=== PATIENT | male | born 1945 | race Caucasian/White ===

== ENCOUNTER 2020-08-17 09:45 | Inpatient (IN) | payer OTHER ==
[~2020-08-17] VITALS: Ht 180.3 cm; Wt 98.3 kg
[~2020-08-17 09:45] MED LIST: ALPR0.5T; AMLO-496; FLUT250M9; GABA100C; NOR10T; SIMV10TA2; ZOLP10TA
[2020-08-17] MEDS ORDERED: AMIODARONE HCL 150 MG in D5W 5% 100 ML IV ONE (10:00)
[2020-08-17] MEDS ORDERED: AMIODARONE HCL (50 MG/ ML) 3 ML VIAL IV ONE (10:14)
[2020-08-17] MEDS ORDERED: AMIODARONE 450mg/250ml AE 250 ML IV SCH (10:15)
[2020-08-17] MEDS ORDERED: DEXTROSE (50%) 50ML SYRG IV PRN (10:15)
[2020-08-17] MEDS ORDERED: INSULIN LANTUS (GLARGINE) 1 /0.01ml (100units/ml) SC ONE (10:15)
[2020-08-17 10:25] LABS: Basophils # (auto) 0 10 ^3/uL (0-0.2); Basophils % (auto) 0.1 % (0.0-2.0); Eosinophils # (auto) 0 10 ^3/uL (0-0.8); Neutrophils % (auto) 83.7 % (37.0-80.0)
[2020-08-17 10:26] LABS: Lymphocytes # (auto) 0.9 10 ^3/uL (0.4-5.4); Lymphocytes % (auto) 8.2 % (10.0-50.0); Mean Corpuscular Hemoglobin 29.7 pg (28.0-32.0); Mean Corpuscular Hgb Conc. 32.7 g/dL (32.0-36.0); Mean Corpuscular Volume 90.9 fL (80.0-100.0); Monocytes # (auto) 0.8 10 ^3/uL (0-1.3); Neutrophils # (auto) 8.8 10 ^3/uL (1.6-8.6); Nucleated Red Blood Cells % 0.7 %; Red Blood Cells 7.21 10^6/uL (4.5-5.90); Red Cell Distribution Width 15.1 % (11.8-14.3); White Blood Cell 10.5 10^3/uL (4.4-10.8)
[2020-08-17 10:32] LABS: Hematocrit 65.5 % (41.0-53.0)
[2020-08-17 10:33] LABS: Hemoglobin 21.4 g/dL (13.5-17.5)
[2020-08-17] MEDS: SODIUM CHLORIDE 0.9% 1,000 ML IV SCH ×4 (10:34→22:56)
[2020-08-17] MEDS ORDERED: ONDANSETRON HCL 4 MG/2 ML VIAL IV ONE (10:45)
[2020-08-17] MEDS ORDERED: ONDANSETRON HCL 4 MG/2 ML VIAL ONE (10:45)
[2020-08-17] MEDS ORDERED: SODIUM CHLORIDE 0.9% 1,000 ML IV ONE (10:45)
[2020-08-17 10:55] LABS: Urine Bacteria NONE SEEN /hpf (None Seen); Urine Blood 1+ /uL (Negative); Urine Hyaline Cast FEW /lpf (0 - 2); Urine Specific Gravity 1.027 (1.001-1.035); Urine WBC <1 /hpf (0 - 3)
[2020-08-17 10:56] LABS: Calcium 8.7 mg/dL (8.5-10.1); Potassium 5.1 mmol/L (3.5-5.1)
[2020-08-17 10:59] LABS: Platelet Count (auto) 138 10^3/uL (140-450)
[2020-08-17 11:01] LABS: BUN/Creatinine Ratio 21.4; Bilirubin, Total 0.7 mg/dL (0.2-1.0); Total Protein 7.1 g/dL (6.4-8.2)
[2020-08-17] MEDS: ACCU-CHEK COMFORT CURVE STRIP VI SCH ×9 (11:18→22:55)
[2020-08-17 11:20] LABS: Phosphorus 4.9 mg/dL (2.5-4.90)
[2020-08-17] MEDS: InsuLIN R (HUMAN) 100 UNITS in SODIUM CHL 0.9% 99 ML IV SCH (11:27)
[2020-08-17 11:45] LABS: CRP High Sensitivity 2.04 mg/dL (< 0.3)
[2020-08-17] MEDS ORDERED: ACETAMINOPHEN 500 MG TAB PO PRN (13:30)
[2020-08-17] MEDS ORDERED: NITROGLYCERIN 0.4 MG SL TAB SL PRN (13:30)
[2020-08-17] MEDS ORDERED: METOPROLOL TARTRATE 1MG/1ML-5ML VIAL IV ONE (13:30)
[2020-08-17] MEDS ORDERED: HYDROcodone-ACET 5/325MG TAB PO PRN (13:30)
[2020-08-17] MEDS ORDERED: MORPHINE SULF INJ 2 MG/ML SYRINGE 1ML IV PRN (13:30)
[2020-08-17 13:44] LABS: Basophils # (auto) 0 10 ^3/uL (0-0.2); Basophils % (auto) 0.1 % (0.0-2.0); Eosinophils # (auto) 0 10 ^3/uL (0-0.8); Mean Corpuscular Volume 90.1 fL (80.0-100.0); Monocytes # (auto) 0.3 10 ^3/uL (0-1.3); White Blood Cell 11.7 10^3/uL (4.4-10.8)
[2020-08-17 13:45] LABS: Hemoglobin 19.8 g/dL (13.5-17.5); Lymphocytes # (auto) 0.4 10 ^3/uL (0.4-5.4); Lymphocytes % (auto) 3.3 % (10.0-50.0); Mean Corpuscular Hemoglobin 30.4 pg (28.0-32.0); Mean Corpuscular Hgb Conc. 33.7 g/dL (32.0-36.0); Monocytes % (auto) 2.5 % (0.0-12.0); Neutrophils % (auto) 94.1 % (37.0-80.0); Nucleated Red Blood Cells % 0.5 %; Red Blood Cells 6.53 10^6/uL (4.5-5.90); Red Cell Distribution Width 15.1 % (11.8-14.3)
[2020-08-17] MEDS: cefTRIAXone 1GM/50ML D5W 50 ML IV SCH (14:00)
[2020-08-17 14:02] LABS: Hematocrit 58.9 % (41.0-53.0); Platelet Count (auto) 89 10^3/uL (140-450)
[2020-08-17] MEDS: ZINC SULFATE 220mg CAP or TAB PO SCH (14:12)
[2020-08-17] MEDS: ASCORBIC ACID 1,000 MG TAB PO SCH (14:12)
[2020-08-17] MEDS: CHOLECALCIFEROL (VITD3) 2,000 UNIT CAP/TAB PO SCH (14:12)
[2020-08-17 14:14] LABS: Albumin 2.7 g/dL (3.4-5.0); Calcium 7.8 mg/dL (8.5-10.1); Magnesium 2.2 mg/dL (1.6-2.6); Potassium 4.7 mmol/L (3.5-5.1)
[2020-08-17] MEDS ORDERED: SODIUM CHLORIDE 0.9% 1,000 ML IV SCH ×2 (14:15→16:15)
[2020-08-17 14:19] LABS: BUN/Creatinine Ratio 26.1; Bilirubin, Total 0.6 mg/dL (0.2-1.0); Total Protein 6.1 g/dL (6.4-8.2)
[2020-08-17] MEDS: AZITHROMYCIN 500MG/ 250ML 250 ML IV SCH (15:54)
[2020-08-17] MEDS: ENOXAPARIN SOD 40 MG/0.4 ML SYRINGE SC SCH ×2 (15:54→22:33)
[2020-08-17] MEDS: MORPHINE SULF INJ 2 MG/ML SYRINGE 1ML IV PRN (15:55)
[2020-08-17] MEDS: ONDANSETRON HCL 4 MG/2 ML VIAL IV PRN (15:55)
[2020-08-17] MEDS ORDERED: IVERMECTIN 3 MG TAB PO ONE (16:00)
[2020-08-17] MEDS: AMIODARONE 450mg/250ml AE 250 ML IV SCH (16:53)
[2020-08-17] MEDS: METOPROLOL TARTRATE 50 MG TAB PO SCH (18:23)
[2020-08-17] MEDS: BUDESONIDE (INHALATION) 180 MCG IH IN SCH (18:37)
[2020-08-17 20:14] LABS: INR 1.11 (0.9-1.15); Partial Thromboplastin Time 29.3 sec (23.0-31.2)
[2020-08-17] MEDS: ALBUTEROL SULF HFA 90MCG INH 200DOSE IN PRN (20:19)
[2020-08-18 00:25] LABS: BUN/Creatinine Ratio 31.4; Calcium 7.7 mg/dL (8.5-10.1); Potassium 4.6 mmol/L (3.5-5.1)
[2020-08-18] MEDS: ACCU-CHEK COMFORT CURVE STRIP VI SCH ×11 (01:46→22:54)
[2020-08-18 01:51] LABS: Lactic Acid w/Reflex 2.4 mmol/L (0.4-2.0)
[2020-08-18] MEDS ORDERED: AMIODARONE HCL 75 MG in D5W 5% 100 ML IV ONE (05:00)
[2020-08-18] MEDS ORDERED: dilTIAZem 25 MG/5 ML VIAL IV ONE (05:45)
[2020-08-18 06:12] LABS: Basophils # (auto) 0 10 ^3/uL (0-0.2); Basophils % (auto) 0.3 % (0.0-2.0); Eosinophils # (auto) 0 10 ^3/uL (0-0.8); Hemoglobin 19.8 g/dL (13.5-17.5); Lymphocytes # (auto) 0.5 10 ^3/uL (0.4-5.4); Lymphocytes % (auto) 3.8 % (10.0-50.0); Mean Corpuscular Hemoglobin 30.3 pg (28.0-32.0); Mean Corpuscular Hgb Conc. 34.7 g/dL (32.0-36.0); Mean Corpuscular Volume 87.4 fL (80.0-100.0); Monocytes # (auto) 0.8 10 ^3/uL (0-1.3); Monocytes % (auto) 6.2 % (0.0-12.0); Neutrophils % (auto) 89.7 % (37.0-80.0); Nucleated Red Blood Cells % 0.1 %; Platelet Count (auto) 113 10^3/uL (140-450); Red Blood Cells 6.55 10^6/uL (4.5-5.90); Red Cell Distribution Width 14.9 % (11.8-14.3); White Blood Cell 13.3 10^3/uL (4.4-10.8)
[2020-08-18 06:15] LABS: Hematocrit 57.3 % (41.0-53.0)
[2020-08-18 06:30] LABS: Potassium 4.5 mmol/L (3.5-5.1)
[2020-08-18 06:40] LABS: Albumin 2.5 g/dL (3.4-5.0); BUN/Creatinine Ratio 28.6; Bilirubin, Total 0.6 mg/dL (0.2-1.0); Calcium 8.1 mg/dL (8.5-10.1); Total Protein 5.9 g/dL (6.4-8.2)
[2020-08-18] MEDS: AMIODARONE 450mg/250ml AE 250 ML IV SCH (07:15)
[2020-08-18] MEDS: ASCORBIC ACID 1,000 MG TAB PO SCH (09:15)
[2020-08-18] MEDS: ZINC SULFATE 220mg CAP or TAB PO SCH (09:15)
[2020-08-18] MEDS: METOPROLOL TARTRATE 50 MG TAB PO SCH ×2 (09:15→22:52)
[2020-08-18] MEDS: CHOLECALCIFEROL (VITD3) 2,000 UNIT CAP/TAB PO SCH (09:15)
[2020-08-18] MEDS: ENOXAPARIN SOD 40 MG/0.4 ML SYRINGE SC SCH (09:16)
[2020-08-18] MEDS: INSULIN LANTUS (GLARGINE) 1 /0.01ml (100units/ml) SC SCH (09:16)
[2020-08-18] MEDS: SODIUM CHLORIDE 0.9% 1,000 ML IV SCH ×2 (09:59→16:48)
[2020-08-18] MEDS: AZITHROMYCIN 500MG/ 250ML 250 ML IV SCH (10:00)
[2020-08-18] MEDS: BUDESONIDE (INHALATION) 180 MCG IH IN SCH ×2 (10:12→18:48)
[2020-08-18] MEDS: ALBUTEROL SULF HFA 90MCG INH 200DOSE IN PRN ×2 (10:12→19:17)
[2020-08-18] MEDS: InsuLIN R (HUMAN) 100 UNITS in SODIUM CHL 0.9% 99 ML IV SCH (10:15)
[2020-08-18] MEDS: cefTRIAXone 1GM/50ML D5W 50 ML IV SCH (11:10)
[2020-08-18] MEDS ORDERED: DEXTROSE (50%) 50ML SYRG IV PRN (12:00)
[2020-08-18] MEDS ORDERED: DIGOXIN (250MCG/ML) 2 ML AMPULE IV ONE ×2 (13:45→17:00)
[2020-08-18] MEDS: AMIODARONE HCL 200 MG TAB PO SCH ×2 (14:00→22:53)
[2020-08-18] MEDS ORDERED: SIMV-8 PO (14:03)
[2020-08-18] MEDS ORDERED: ALLO300T2 PO (14:05)
[2020-08-18] MEDS ORDERED: GLIP5TAB12 PO (14:05)
[2020-08-18] MEDS ORDERED: BENA20TA14 PO (14:05)
[2020-08-18] MEDS ORDERED: CARV6.2551 PO (14:05)
[2020-08-18] MEDS ORDERED: TIZA4CAP PO (14:05)
[2020-08-18] MEDS ORDERED: INSREG3 SC (14:06)
[2020-08-18] MEDS ORDERED: REMDESIVIR PER PHARMACY 0 ML IV SCH (14:15)
[2020-08-18] MEDS: InsuLIN REG 1unit/0.01ml Soln (100units/ml) SC SCH ×2 (16:49→22:51)
[2020-08-18] MEDS ORDERED: REMDESIVIR 200 MG in NS 210ml LOADING DOSE ADULT IV ONE (17:00)
[2020-08-18] MEDS: hydrALAZINE HCL 20 MG/ML VL IV PRN (21:13)
[2020-08-18] MEDS: APIXABAN 5 MG TAB PO SCH (22:53)
[2020-08-18] MEDS: MORPHINE SULF INJ 2 MG/ML SYRINGE 1ML IV PRN (22:54)
[2020-08-19] MEDS: hydrALAZINE HCL 20 MG/ML VL IV PRN (00:45)
[2020-08-19] MEDS: MORPHINE SULF INJ 2 MG/ML SYRINGE 1ML IV PRN ×5 (03:28→23:05)
[2020-08-19] MEDS: SODIUM CHLORIDE 0.9% 1,000 ML IV SCH ×2 (05:01→15:40)
[2020-08-19 06:12] LABS: Basophils # (auto) 0 10 ^3/uL (0-0.2); Basophils % (auto) 0.1 % (0.0-2.0); Eosinophils # (auto) 0 10 ^3/uL (0-0.8); Monocytes # (auto) 0.5 10 ^3/uL (0-1.3); Monocytes % (auto) 5.9 % (0.0-12.0)
[2020-08-19 06:14] LABS: Hematocrit 51.6 % (41.0-53.0); Hemoglobin 17.8 g/dL (13.5-17.5); Lymphocytes # (auto) 0.5 10 ^3/uL (0.4-5.4); Lymphocytes % (auto) 6.3 % (10.0-50.0); Mean Corpuscular Hemoglobin 30.6 pg (28.0-32.0); Mean Corpuscular Hgb Conc. 34.6 g/dL (32.0-36.0); Mean Corpuscular Volume 88.5 fL (80.0-100.0); Neutrophils # (auto) 7.6 10 ^3/uL (1.6-8.6); Neutrophils % (auto) 87.7 % (37.0-80.0); Nucleated Red Blood Cells % 0.2 %; Platelet Count (auto) 98 10^3/uL (140-450); Red Blood Cells 5.83 10^6/uL (4.5-5.90); Red Cell Distribution Width 14.9 % (11.8-14.3); White Blood Cell 8.7 10^3/uL (4.4-10.8)
[2020-08-19 06:35] LABS: Potassium 4.1 mmol/L (3.5-5.1)
[2020-08-19 07:03] LABS: Albumin 2.2 g/dL (3.4-5.0); BUN/Creatinine Ratio 22.7; Bilirubin, Total 0.9 mg/dL (0.2-1.0); Calcium 7.8 mg/dL (8.5-10.1); Magnesium 2.1 mg/dL (1.6-2.6); Total Protein 5.6 g/dL (6.4-8.2)
[2020-08-19] MEDS: ALBUTEROL SULF HFA 90MCG INH 200DOSE IN PRN (07:25)
[2020-08-19] MEDS: BUDESONIDE (INHALATION) 180 MCG IH IN SCH ×2 (07:25→09:55)
[2020-08-19] MEDS: ZINC SULFATE 220mg CAP or TAB PO SCH (09:08)
[2020-08-19] MEDS: APIXABAN 5 MG TAB PO SCH ×2 (09:08→23:04)
[2020-08-19] MEDS: AZITHROMYCIN 500MG/ 250ML 250 ML IV SCH (09:08)
[2020-08-19] MEDS: AMIODARONE HCL 200 MG TAB PO SCH ×2 (09:08→23:04)
[2020-08-19] MEDS: cefTRIAXone 1GM/50ML D5W 50 ML IV SCH (09:08)
[2020-08-19] MEDS: ACCU-CHEK COMFORT CURVE STRIP VI SCH ×4 (09:08→23:04)
[2020-08-19] MEDS: METOPROLOL TARTRATE 50 MG TAB PO SCH ×2 (09:08→23:04)
[2020-08-19] MEDS: ASCORBIC ACID 1,000 MG TAB PO SCH (09:09)
[2020-08-19] MEDS: CHOLECALCIFEROL (VITD3) 2,000 UNIT CAP/TAB PO SCH (09:09)
[2020-08-19] MEDS: INSULIN LANTUS (GLARGINE) 1 /0.01ml (100units/ml) SC SCH (09:09)
[2020-08-19] MEDS: ONDANSETRON HCL 4 MG/2 ML VIAL IV PRN ×4 (09:09→23:05)
[2020-08-19] MEDS: InsuLIN REG 1unit/0.01ml Soln (100units/ml) SC SCH ×4 (09:10→23:07)
[2020-08-19] MEDS: metroNIDAZOLE 500MG/100ML 100 ML IV SCH ×2 (14:23→23:03)
[2020-08-19] MEDS: REMDESIVIR 100mg 100 MG in SODIUM CHL 0.9% 230 ML IV SCH (15:40)
[2020-08-20] VITALS: BP 143/63
[2020-08-20] MEDS: SODIUM CHLORIDE 0.9% 1,000 ML IV SCH ×3 (01:50→21:58)
[2020-08-20] MEDS: ONDANSETRON HCL 4 MG/2 ML VIAL IV PRN ×3 (05:04→15:02)
[2020-08-20] MEDS: MORPHINE SULF INJ 2 MG/ML SYRINGE 1ML IV PRN ×2 (05:04→10:46)
[2020-08-20] MEDS: metroNIDAZOLE 500MG/100ML 100 ML IV SCH ×3 (05:04→21:58)
[2020-08-20] MEDS: InsuLIN REG 1unit/0.01ml Soln (100units/ml) SC SCH ×4 (06:39→23:07)
[2020-08-20] MEDS: ACCU-CHEK COMFORT CURVE STRIP VI SCH ×4 (06:42→23:03)
[2020-08-20 08:00] VITALS: BP 140/65
[2020-08-20] MEDS: ALBUTEROL SULF HFA 90MCG INH 200DOSE IN PRN (09:55)
[2020-08-20] MEDS: BUDESONIDE (INHALATION) 180 MCG IH IN SCH ×2 (09:55→20:41)
[2020-08-20] MEDS: INSULIN LANTUS (GLARGINE) 1 /0.01ml (100units/ml) SC SCH (10:00)
[2020-08-20] MEDS: cefTRIAXone 1GM/50ML D5W 50 ML IV SCH (10:20)
[2020-08-20] MEDS: ZINC SULFATE 220mg CAP or TAB PO SCH (10:44)
[2020-08-20] MEDS: ASCORBIC ACID 1,000 MG TAB PO SCH (10:44)
[2020-08-20] MEDS: CHOLECALCIFEROL (VITD3) 2,000 UNIT CAP/TAB PO SCH (10:44)
[2020-08-20] MEDS: APIXABAN 5 MG TAB PO SCH ×2 (10:45→21:59)
[2020-08-20] MEDS: METOPROLOL TARTRATE 50 MG TAB PO SCH ×2 (10:45→22:00)
[2020-08-20] MEDS: AZITHROMYCIN 500MG/ 250ML 250 ML IV SCH (10:45)
[2020-08-20] MEDS: AMIODARONE HCL 200 MG TAB PO SCH ×2 (10:45→21:59)
[2020-08-20 11:21] LABS: Basophils # (auto) 0 10 ^3/uL (0-0.2); Basophils % (auto) 0.1 % (0.0-2.0); Eosinophils # (auto) 0 10 ^3/uL (0-0.8); Eosinophils % (auto) 0.1 % (0.0-7.0); Hematocrit 48.1 % (41.0-53.0); Hemoglobin 16.1 g/dL (13.5-17.5); Lymphocytes # (auto) 0.6 10 ^3/uL (0.4-5.4); Lymphocytes % (auto) 7.1 % (10.0-50.0); Mean Corpuscular Hemoglobin 29.8 pg (28.0-32.0); Mean Corpuscular Hgb Conc. 33.5 g/dL (32.0-36.0); Monocytes # (auto) 0.5 10 ^3/uL (0-1.3); Monocytes % (auto) 6.9 % (0.0-12.0); Neutrophils # (auto) 6.7 10 ^3/uL (1.6-8.6); Neutrophils % (auto) 85.8 % (37.0-80.0); Nucleated Red Blood Cells % 0.1 %; Platelet Count (auto) 102 10^3/uL (140-450); Red Blood Cells 5.41 10^6/uL (4.5-5.90); Red Cell Distribution Width 14.9 % (11.8-14.3); White Blood Cell 7.8 10^3/uL (4.4-10.8)
[2020-08-20 11:37] LABS: Potassium 3.9 mmol/L (3.5-5.1)
[2020-08-20 11:44] LABS: Albumin 1.8 g/dL (3.4-5.0); Bilirubin, Total 0.5 mg/dL (0.2-1.0); Calcium 7.9 mg/dL (8.5-10.1)
[2020-08-20] MEDS: HYDROmorphone HCL 2 MG/ML VL IV PRN ×2 (15:02→21:43)
[2020-08-20 16:00] VITALS: BP 137/65
[2020-08-20] MEDS: REMDESIVIR 100mg 100 MG in SODIUM CHL 0.9% 230 ML IV SCH (16:15)
[2020-08-20] MEDS: ALBUTEROL SULF HFA 90MCG INH 200DOSE IN SCH (20:41)
[2020-08-21] VITALS: BP 119/55
[2020-08-21] MEDS: HYDROmorphone HCL 2 MG/ML VL IV PRN ×6 (02:15→21:38)
[2020-08-21] MEDS: metroNIDAZOLE 500MG/100ML 100 ML IV SCH ×3 (05:35→21:36)
[2020-08-21] MEDS: ACCU-CHEK COMFORT CURVE STRIP VI SCH ×4 (06:27→22:45)
[2020-08-21] MEDS: InsuLIN REG 1unit/0.01ml Soln (100units/ml) SC SCH ×4 (06:28→22:50)
[2020-08-21] MEDS: BUDESONIDE (INHALATION) 180 MCG IH IN SCH ×2 (06:37→18:46)
[2020-08-21] MEDS: ALBUTEROL SULF HFA 90MCG INH 200DOSE IN SCH ×3 (06:37→18:46)
[2020-08-21 08:00] VITALS: BP 149/70
[2020-08-21] MEDS: cefTRIAXone 1GM/50ML D5W 50 ML IV SCH (09:31)
[2020-08-21] MEDS: AZITHROMYCIN 500MG/ 250ML 250 ML IV SCH (09:31)
[2020-08-21] MEDS: ZINC SULFATE 220mg CAP or TAB PO SCH (09:39)
[2020-08-21] MEDS: APIXABAN 5 MG TAB PO SCH ×2 (09:40→21:37)
[2020-08-21] MEDS: ASCORBIC ACID 1,000 MG TAB PO SCH (09:40)
[2020-08-21] MEDS: AMIODARONE HCL 200 MG TAB PO SCH ×2 (09:40→21:36)
[2020-08-21] MEDS: CHOLECALCIFEROL (VITD3) 2,000 UNIT CAP/TAB PO SCH (09:48)
[2020-08-21] MEDS: METOPROLOL TARTRATE 50 MG TAB PO SCH ×2 (09:48→21:37)
[2020-08-21] MEDS: INSULIN LANTUS (GLARGINE) 1 /0.01ml (100units/ml) SC SCH (10:00)
[2020-08-21] MEDS: SODIUM CHLORIDE 0.9% 1,000 ML IV SCH ×2 (10:04→17:30)
[2020-08-21 10:52] LABS: Basophils # (auto) 0 10 ^3/uL (0-0.2); Basophils % (auto) 0.1 % (0.0-2.0); Eosinophils # (auto) 0.1 10 ^3/uL (0-0.8); Eosinophils % (auto) 0.7 % (0.0-7.0); Hematocrit 45.1 % (41.0-53.0); Hemoglobin 15.5 g/dL (13.5-17.5); Lymphocytes # (auto) 0.5 10 ^3/uL (0.4-5.4); Lymphocytes % (auto) 6.6 % (10.0-50.0); Mean Corpuscular Hemoglobin 30.5 pg (28.0-32.0); Mean Corpuscular Hgb Conc. 34.4 g/dL (32.0-36.0); Mean Corpuscular Volume 88.5 fL (80.0-100.0); Monocytes # (auto) 0.7 10 ^3/uL (0-1.3); Monocytes % (auto) 8.7 % (0.0-12.0); Neutrophils # (auto) 6.6 10 ^3/uL (1.6-8.6); Neutrophils % (auto) 83.9 % (37.0-80.0); Nucleated Red Blood Cells % 0.1 %; Platelet Count (auto) 121 10^3/uL (140-450); Red Blood Cells 5.09 10^6/uL (4.5-5.90); Red Cell Distribution Width 15.1 % (11.8-14.3); White Blood Cell 7.8 10^3/uL (4.4-10.8)
[2020-08-21 11:07] LABS: Potassium 3.6 mmol/L (3.5-5.1)
[2020-08-21 11:18] LABS: Albumin 1.8 g/dL (3.4-5.0); BUN/Creatinine Ratio 19.7; Bilirubin, Total 0.5 mg/dL (0.2-1.0); Calcium 7.6 mg/dL (8.5-10.1); Magnesium 1.9 mg/dL (1.6-2.6); Total Protein 4.9 g/dL (6.4-8.2)
[2020-08-21 16:00] VITALS: BP 140/67
[2020-08-21] MEDS: REMDESIVIR 100mg 100 MG in SODIUM CHL 0.9% 230 ML IV SCH (17:00)
[2020-08-22] VITALS: BP 131/59
[2020-08-22] MEDS: HYDROmorphone HCL 2 MG/ML VL IV PRN ×5 (00:52→21:09)
[2020-08-22] MEDS: SODIUM CHLORIDE 0.9% 1,000 ML IV SCH ×3 (05:52→23:30)
[2020-08-22] MEDS: ACCU-CHEK COMFORT CURVE STRIP VI SCH ×4 (06:38→21:09)
[2020-08-22] MEDS: metroNIDAZOLE 500MG/100ML 100 ML IV SCH ×3 (06:38→21:07)
[2020-08-22] MEDS: InsuLIN REG 1unit/0.01ml Soln (100units/ml) SC SCH ×4 (06:38→21:10)
[2020-08-22 06:43] LABS: Basophils # (auto) 0 10 ^3/uL (0-0.2); Basophils % (auto) 0.2 % (0.0-2.0); Eosinophils # (auto) 0.1 10 ^3/uL (0-0.8); Eosinophils % (auto) 1.5 % (0.0-7.0); Hematocrit 45.3 % (41.0-53.0); Hemoglobin 15.7 g/dL (13.5-17.5); Lymphocytes # (auto) 0.7 10 ^3/uL (0.4-5.4); Lymphocytes % (auto) 10.6 % (10.0-50.0); Mean Corpuscular Hemoglobin 30.6 pg (28.0-32.0); Mean Corpuscular Hgb Conc. 34.8 g/dL (32.0-36.0); Monocytes # (auto) 0.7 10 ^3/uL (0-1.3); Monocytes % (auto) 10.3 % (0.0-12.0); Neutrophils # (auto) 5.4 10 ^3/uL (1.6-8.6); Neutrophils % (auto) 77.4 % (37.0-80.0); Nucleated Red Blood Cells % 0.1 %; Platelet Count (auto) 142 10^3/uL (140-450); Red Blood Cells 5.15 10^6/uL (4.5-5.90); Red Cell Distribution Width 14.8 % (11.8-14.3)
[2020-08-22 06:58] LABS: Albumin 1.8 g/dL (3.4-5.0); Calcium 7.7 mg/dL (8.5-10.1); Magnesium 1.9 mg/dL (1.6-2.6); Potassium 3.6 mmol/L (3.5-5.1)
[2020-08-22 07:01] LABS: BUN/Creatinine Ratio 15.5; Bilirubin, Total 0.5 mg/dL (0.2-1.0); Total Protein 5.1 g/dL (6.4-8.2)
[2020-08-22] MEDS: BUDESONIDE (INHALATION) 180 MCG IH IN SCH ×2 (07:32→19:54)
[2020-08-22] MEDS: ALBUTEROL SULF HFA 90MCG INH 200DOSE IN SCH ×3 (07:32→19:54)
[2020-08-22 08:00] VITALS: BP 126/65
[2020-08-22] MEDS: cefTRIAXone 1GM/50ML D5W 50 ML IV SCH (08:27)
[2020-08-22] MEDS: AZITHROMYCIN 500MG/ 250ML 250 ML IV SCH (08:27)
[2020-08-22] MEDS: APIXABAN 5 MG TAB PO SCH ×2 (08:28→21:08)
[2020-08-22] MEDS: AMIODARONE HCL 200 MG TAB PO SCH ×2 (08:28→21:07)
[2020-08-22] MEDS: ZINC SULFATE 220mg CAP or TAB PO SCH (08:28)
[2020-08-22] MEDS: ASCORBIC ACID 1,000 MG TAB PO SCH (08:28)
[2020-08-22] MEDS: METOPROLOL TARTRATE 50 MG TAB PO SCH ×2 (08:28→21:08)
[2020-08-22] MEDS: CHOLECALCIFEROL (VITD3) 2,000 UNIT CAP/TAB PO SCH (08:29)
[2020-08-22] MEDS: INSULIN LANTUS (GLARGINE) 1 /0.01ml (100units/ml) SC SCH (10:00)
[2020-08-22] MEDS ORDERED: OMNIPAQUE ORAL SOLN 500ml 12mg/ml PO ONE (12:47)
[2020-08-22] MEDS ORDERED: IOHEXOL 300 MG/ML 100ML BOTTLE IJ ONE (12:48)
[2020-08-22 16:00] VITALS: BP 137/62
[2020-08-22] MEDS: REMDESIVIR 100mg 100 MG in SODIUM CHL 0.9% 230 ML IV SCH (16:00)
[2020-08-23 00:18] VITALS: BP 133/36
[2020-08-23] MEDS: HYDROmorphone HCL 2 MG/ML VL IV PRN ×4 (05:55→20:12)
[2020-08-23] MEDS: metroNIDAZOLE 500MG/100ML 100 ML IV SCH ×3 (06:06→21:59)
[2020-08-23] MEDS: ALBUTEROL SULF HFA 90MCG INH 200DOSE IN SCH ×3 (06:16→20:08)
[2020-08-23] MEDS: BUDESONIDE (INHALATION) 180 MCG IH IN SCH ×2 (06:16→20:08)
[2020-08-23] MEDS: InsuLIN REG 1unit/0.01ml Soln (100units/ml) SC SCH ×4 (06:47→21:45)
[2020-08-23] MEDS: ACCU-CHEK COMFORT CURVE STRIP VI SCH ×4 (06:52→21:58)
[2020-08-23 08:00] VITALS: BP 149/96
[2020-08-23] MEDS: SODIUM CHLORIDE 0.9% 1,000 ML IV SCH ×2 (09:30→22:00)
[2020-08-23] MEDS: cefTRIAXone 1GM/50ML D5W 50 ML IV SCH (11:18)
[2020-08-23] MEDS: ASCORBIC ACID 1,000 MG TAB PO SCH (11:19)
[2020-08-23] MEDS: ONDANSETRON HCL 4 MG/2 ML VIAL IV PRN (11:19)
[2020-08-23] MEDS: CHOLECALCIFEROL (VITD3) 2,000 UNIT CAP/TAB PO SCH (11:19)
[2020-08-23] MEDS: METOPROLOL TARTRATE 50 MG TAB PO SCH ×2 (11:19→21:59)
[2020-08-23] MEDS: APIXABAN 5 MG TAB PO SCH ×2 (11:19→21:59)
[2020-08-23] MEDS: ZINC SULFATE 220mg CAP or TAB PO SCH (11:19)
[2020-08-23] MEDS: AMIODARONE HCL 200 MG TAB PO SCH ×2 (11:20→21:59)
[2020-08-23] MEDS: AZITHROMYCIN 500MG/ 250ML 250 ML IV SCH (12:39)
[2020-08-23] MEDS: INSULIN LANTUS (GLARGINE) 1 /0.01ml (100units/ml) SC SCH (14:49)
[2020-08-23 16:00] VITALS: BP 148/70
[2020-08-23 20:00] VITALS: BP 148/70
[2020-08-24] VITALS: BP_SYST 132; BP_SYST 141; BP_DIAS 72; BP_DIAS 77
[2020-08-24] MEDS: HYDROmorphone HCL 2 MG/ML VL IV PRN ×7 (01:28→23:08)
[2020-08-24] MEDS: TEMAZEPAM 15 MG CAP PO PRN (01:28)
[2020-08-24] MEDS: SODIUM CHLORIDE 0.9% 1,000 ML IV SCH ×2 (05:40→15:30)
[2020-08-24] MEDS: ACCU-CHEK COMFORT CURVE STRIP VI SCH ×4 (06:45→22:52)
[2020-08-24] MEDS: metroNIDAZOLE 500MG/100ML 100 ML IV SCH ×2 (06:45→14:05)
[2020-08-24] MEDS: InsuLIN REG 1unit/0.01ml Soln (100units/ml) SC SCH ×4 (06:46→23:15)
[2020-08-24] MEDS: BUDESONIDE (INHALATION) 180 MCG IH IN SCH ×2 (07:35→22:00)
[2020-08-24] MEDS: ALBUTEROL SULF HFA 90MCG INH 200DOSE IN SCH ×3 (07:35→22:00)
[2020-08-24 08:00] VITALS: BP 143/64
[2020-08-24] MEDS: cefTRIAXone 1GM/50ML D5W 50 ML IV SCH (08:20)
[2020-08-24] MEDS: CHOLECALCIFEROL (VITD3) 2,000 UNIT CAP/TAB PO SCH (08:22)
[2020-08-24] MEDS: METOPROLOL TARTRATE 50 MG TAB PO SCH ×2 (08:22→22:51)
[2020-08-24] MEDS: APIXABAN 5 MG TAB PO SCH ×2 (08:22→22:41)
[2020-08-24] MEDS: ASCORBIC ACID 1,000 MG TAB PO SCH (08:22)
[2020-08-24] MEDS: AMIODARONE HCL 200 MG TAB PO SCH ×2 (08:22→22:39)
[2020-08-24] MEDS: ZINC SULFATE 220mg CAP or TAB PO SCH (08:22)
[2020-08-24] MEDS: AZITHROMYCIN 500MG/ 250ML 250 ML IV SCH (10:27)
[2020-08-24 11:04] LABS: Basophils # (auto) 0 10 ^3/uL (0-0.2); Basophils % (auto) 0.5 % (0.0-2.0); Eosinophils # (auto) 0.1 10 ^3/uL (0-0.8); Eosinophils % (auto) 1.6 % (0.0-7.0); Hematocrit 44.4 % (41.0-53.0); Hemoglobin 15.1 g/dL (13.5-17.5); Lymphocytes # (auto) 0.8 10 ^3/uL (0.4-5.4); Lymphocytes % (auto) 11.8 % (10.0-50.0); Mean Corpuscular Hemoglobin 30.3 pg (28.0-32.0); Mean Corpuscular Hgb Conc. 34.1 g/dL (32.0-36.0); Mean Corpuscular Volume 88.8 fL (80.0-100.0); Monocytes # (auto) 0.9 10 ^3/uL (0-1.3); Monocytes % (auto) 12.5 % (0.0-12.0); Neutrophils # (auto) 5.1 10 ^3/uL (1.6-8.6); Neutrophils % (auto) 73.6 % (37.0-80.0); Nucleated Red Blood Cells % 0.1 %; Platelet Count (auto) 174 10^3/uL (140-450); Red Cell Distribution Width 14.4 % (11.8-14.3)
[2020-08-24 11:27] LABS: Albumin 1.8 g/dL (3.4-5.0); Calcium 7.9 mg/dL (8.5-10.1); Magnesium 1.8 mg/dL (1.6-2.6)
[2020-08-24 11:31] LABS: BUN/Creatinine Ratio 15.8; Bilirubin, Total 0.3 mg/dL (0.2-1.0); Total Protein 5.2 g/dL (6.4-8.2)
[2020-08-24] MEDS: INSULIN LANTUS (GLARGINE) 1 /0.01ml (100units/ml) SC SCH (12:47)
[2020-08-24 16:00] VITALS: BP 130/54
[2020-08-24] MEDS: PIPERACILLIN-TAZOB 3.375GM 100 ML IV SCH (17:06)
[2020-08-25] VITALS: BP 138/55
[2020-08-25] MEDS: TEMAZEPAM 15 MG CAP PO PRN (00:19)
[2020-08-25] MEDS: PIPERACILLIN-TAZOB 3.375GM 100 ML IV SCH ×4 (00:20→17:22)
[2020-08-25] MEDS: SODIUM CHLORIDE 0.9% 1,000 ML IV SCH ×3 (01:30→22:47)
[2020-08-25] MEDS: HYDROmorphone HCL 2 MG/ML VL IV PRN ×2 (04:35→08:07)
[2020-08-25] MEDS: ACCU-CHEK COMFORT CURVE STRIP VI SCH ×4 (06:31→22:48)
[2020-08-25] MEDS: InsuLIN REG 1unit/0.01ml Soln (100units/ml) SC SCH ×4 (06:35→23:13)
[2020-08-25 07:43] VITALS: BP 142/65
[2020-08-25 08:00] VITALS: BP 142/65
[2020-08-25] MEDS: BUDESONIDE (INHALATION) 180 MCG IH IN SCH ×2 (08:00→21:17)
[2020-08-25] MEDS: ALBUTEROL SULF HFA 90MCG INH 200DOSE IN SCH ×3 (08:00→21:18)
[2020-08-25] MEDS: AMIODARONE HCL 200 MG TAB PO SCH ×2 (10:12→22:47)
[2020-08-25] MEDS: ZINC SULFATE 220mg CAP or TAB PO SCH (10:12)
[2020-08-25] MEDS: METOPROLOL TARTRATE 50 MG TAB PO SCH ×2 (10:13→22:59)
[2020-08-25] MEDS: CHOLECALCIFEROL (VITD3) 2,000 UNIT CAP/TAB PO SCH (10:13)
[2020-08-25] MEDS: ASCORBIC ACID 1,000 MG TAB PO SCH (10:13)
[2020-08-25] MEDS: MORPHINE SULFATE 4 MG/ML SYR/VIAL IV PRN ×4 (10:13→20:25)
[2020-08-25] MEDS: APIXABAN 5 MG TAB PO SCH ×2 (10:13→22:46)
[2020-08-25] MEDS: INSULIN LANTUS (GLARGINE) 1 /0.01ml (100units/ml) SC SCH (11:21)
[2020-08-25 16:00] VITALS: BP 135/69
[2020-08-26] VITALS: BP 126/60
[2020-08-26] MEDS: PIPERACILLIN-TAZOB 3.375GM 100 ML IV SCH ×5 (00:17→23:46)
[2020-08-26] MEDS: MORPHINE SULFATE 4 MG/ML SYR/VIAL IV PRN ×4 (04:34→23:46)
[2020-08-26] MEDS: ACCU-CHEK COMFORT CURVE STRIP VI SCH ×4 (06:41→21:46)
[2020-08-26] MEDS: InsuLIN REG 1unit/0.01ml Soln (100units/ml) SC SCH ×4 (06:41→21:51)
[2020-08-26] MEDS: SODIUM CHLORIDE 0.9% 1,000 ML IV SCH (07:30)
[2020-08-26 08:00] VITALS: BP 137/44
[2020-08-26] MEDS: ALBUTEROL SULF HFA 90MCG INH 200DOSE IN SCH ×3 (08:28→22:00)
[2020-08-26] MEDS: ZINC SULFATE 220mg CAP or TAB PO SCH (09:48)
[2020-08-26] MEDS: ASCORBIC ACID 1,000 MG TAB PO SCH (09:48)
[2020-08-26] MEDS: CHOLECALCIFEROL (VITD3) 2,000 UNIT CAP/TAB PO SCH (09:48)
[2020-08-26] MEDS: APIXABAN 5 MG TAB PO SCH ×2 (09:48→21:28)
[2020-08-26] MEDS: AMIODARONE HCL 200 MG TAB PO SCH ×2 (09:57→21:28)
[2020-08-26] MEDS: METOPROLOL TARTRATE 50 MG TAB PO SCH ×2 (10:08→21:52)
[2020-08-26] MEDS: BUDESONIDE (INHALATION) 180 MCG IH IN SCH ×2 (10:09→22:00)
[2020-08-26] MEDS: INSULIN LANTUS (GLARGINE) 1 /0.01ml (100units/ml) SC SCH (10:18)
[2020-08-26] MEDS ORDERED: ACETAMINOPHEN 500 MG TAB PO PRN (11:30)
[2020-08-26] MEDS: traMADol HCL 50 MG TAB PO PRN ×2 (12:43→17:11)
[2020-08-26 16:00] VITALS: BP 153/65
[2020-08-26] MEDS: TEMAZEPAM 15 MG CAP PO PRN (21:30)
[2020-08-27] VITALS: BP 153/78
[2020-08-27] MEDS: hydrALAZINE HCL 20 MG/ML VL IV PRN (00:40)
[2020-08-27] MEDS: MORPHINE SULFATE 4 MG/ML SYR/VIAL IV PRN ×5 (03:54→21:53)
[2020-08-27] MEDS: ACCU-CHEK COMFORT CURVE STRIP VI SCH ×4 (06:05→22:17)
[2020-08-27] MEDS: PIPERACILLIN-TAZOB 3.375GM 100 ML IV SCH ×2 (06:05→13:46)
[2020-08-27] MEDS: InsuLIN REG 1unit/0.01ml Soln (100units/ml) SC SCH ×4 (06:05→22:13)
[2020-08-27 07:38] LABS: Basophils # (auto) 0 10 ^3/uL (0-0.2); Basophils % (auto) 0.4 % (0.0-2.0); Eosinophils # (auto) 0.1 10 ^3/uL (0-0.8); Hematocrit 51.9 % (41.0-53.0); Hemoglobin 17.2 g/dL (13.5-17.5); Lymphocytes # (auto) 1.5 10 ^3/uL (0.4-5.4); Lymphocytes % (auto) 18.7 % (10.0-50.0); Mean Corpuscular Hemoglobin 30.3 pg (28.0-32.0); Mean Corpuscular Hgb Conc. 33.1 g/dL (32.0-36.0); Mean Corpuscular Volume 91.5 fL (80.0-100.0); Monocytes # (auto) 0.9 10 ^3/uL (0-1.3); Monocytes % (auto) 10.9 % (0.0-12.0); Neutrophils # (auto) 5.4 10 ^3/uL (1.6-8.6); Nucleated Red Blood Cells % 0.2 %; Platelet Count (auto) 183 10^3/uL (140-450); Red Blood Cells 5.67 10^6/uL (4.5-5.90); Red Cell Distribution Width 15.1 % (11.8-14.3); White Blood Cell 7.8 10^3/uL (4.4-10.8)
[2020-08-27 07:49] LABS: Potassium 4.3 mmol/L (3.5-5.1)
[2020-08-27 08:00] VITALS: BP 141/65
[2020-08-27 08:01] LABS: BUN/Creatinine Ratio 13.9
[2020-08-27] MEDS: AMIODARONE HCL 200 MG TAB PO SCH ×2 (09:08→21:56)
[2020-08-27] MEDS: ZINC SULFATE 220mg CAP or TAB PO SCH (09:08)
[2020-08-27] MEDS: APIXABAN 5 MG TAB PO SCH (09:08)
[2020-08-27] MEDS: ASCORBIC ACID 1,000 MG TAB PO SCH (09:10)
[2020-08-27] MEDS: METOPROLOL TARTRATE 50 MG TAB PO SCH ×2 (09:10→21:57)
[2020-08-27] MEDS: CHOLECALCIFEROL (VITD3) 2,000 UNIT CAP/TAB PO SCH (09:10)
[2020-08-27] MEDS: BUDESONIDE (INHALATION) 180 MCG IH IN SCH ×2 (10:00→20:10)
[2020-08-27] MEDS: INSULIN LANTUS (GLARGINE) 1 /0.01ml (100units/ml) SC SCH (11:38)
[2020-08-27] MEDS: metroNIDAZOLE 500MG/100ML 100 ML IV SCH ×2 (15:40→21:56)
[2020-08-27 16:00] VITALS: BP 169/73
[2020-08-27] MEDS: ALBUTEROL SULF HFA 90MCG INH 200DOSE IN PRN (20:10)
[2020-08-27] MEDS: CIPROFLOXACIN 400MG/200ML 200 ML IV SCH (20:27)
[2020-08-27] MEDS: TEMAZEPAM 15 MG CAP PO PRN (22:22)
[2020-08-27 23:53] VITALS: BP 170/74
[2020-08-28] MEDS: MORPHINE SULFATE 4 MG/ML SYR/VIAL IV PRN ×5 (01:57→20:20)
[2020-08-28] MEDS: InsuLIN REG 1unit/0.01ml Soln (100units/ml) SC SCH ×4 (06:19→22:00)
[2020-08-28] MEDS: ACCU-CHEK COMFORT CURVE STRIP VI SCH ×4 (06:20→22:00)
[2020-08-28] MEDS: metroNIDAZOLE 500MG/100ML 100 ML IV SCH ×3 (06:26→23:16)
[2020-08-28 07:44] VITALS: BP 157/79
[2020-08-28 08:10] LABS: Basophils # (auto) 0 10 ^3/uL (0-0.2); Basophils % (auto) 0.7 % (0.0-2.0); Eosinophils # (auto) 0 10 ^3/uL (0-0.8); Eosinophils % (auto) 0.8 % (0.0-7.0); Hematocrit 46.3 % (41.0-53.0); Hemoglobin 15.9 g/dL (13.5-17.5); Lymphocytes # (auto) 0.9 10 ^3/uL (0.4-5.4); Lymphocytes % (auto) 15.4 % (10.0-50.0); Mean Corpuscular Hemoglobin 30.3 pg (28.0-32.0); Mean Corpuscular Hgb Conc. 34.3 g/dL (32.0-36.0); Mean Corpuscular Volume 88.3 fL (80.0-100.0); Monocytes # (auto) 0.5 10 ^3/uL (0-1.3); Monocytes % (auto) 9.4 % (0.0-12.0); Neutrophils # (auto) 4.3 10 ^3/uL (1.6-8.6); Neutrophils % (auto) 73.7 % (37.0-80.0); Nucleated Red Blood Cells % 0.1 %; Platelet Count (auto) 190 10^3/uL (140-450); Red Blood Cells 5.24 10^6/uL (4.5-5.90); Red Cell Distribution Width 14.8 % (11.8-14.3); White Blood Cell 5.8 10^3/uL (4.4-10.8)
[2020-08-28 08:26] LABS: Calcium 8.3 mg/dL (8.5-10.1); Potassium 3.8 mmol/L (3.5-5.1)
[2020-08-28] MEDS: CIPROFLOXACIN 400MG/200ML 200 ML IV SCH ×2 (08:42→20:20)
[2020-08-28] MEDS: BUDESONIDE (INHALATION) 180 MCG IH IN SCH ×2 (10:00→19:16)
[2020-08-28] MEDS: METOPROLOL TARTRATE 50 MG TAB PO SCH ×2 (10:50→22:00)
[2020-08-28] MEDS: AMIODARONE HCL 200 MG TAB PO SCH ×2 (10:50→23:16)
[2020-08-28] MEDS: INSULIN LANTUS (GLARGINE) 1 /0.01ml (100units/ml) SC SCH (11:11)
[2020-08-28 15:32] VITALS: BP 186/78
[2020-08-28] MEDS: ALBUTEROL SULF HFA 90MCG INH 200DOSE IN PRN (19:16)
[2020-08-28] MEDS: TEMAZEPAM 15 MG CAP PO PRN (23:28)
[2020-08-29] VITALS: BP 179/77
[2020-08-29] MEDS: MORPHINE SULFATE 4 MG/ML SYR/VIAL IV PRN ×3 (00:05→08:30)
[2020-08-29] MEDS: hydrALAZINE HCL 20 MG/ML VL IV PRN (04:31)
[2020-08-29] MEDS: metroNIDAZOLE 500MG/100ML 100 ML IV SCH ×3 (06:06→23:12)
[2020-08-29] MEDS: InsuLIN REG 1unit/0.01ml Soln (100units/ml) SC SCH ×4 (06:43→22:50)
[2020-08-29] MEDS: ACCU-CHEK COMFORT CURVE STRIP VI SCH ×4 (06:43→22:48)
[2020-08-29 08:00] VITALS: BP 124/51
[2020-08-29] MEDS: CIPROFLOXACIN 400MG/200ML 200 ML IV SCH ×2 (08:45→20:40)
[2020-08-29] MEDS: AMIODARONE HCL 200 MG TAB PO SCH ×2 (09:30→23:12)
[2020-08-29] MEDS: METOPROLOL TARTRATE 50 MG TAB PO SCH ×2 (09:30→23:13)
[2020-08-29] MEDS: INSULIN LANTUS (GLARGINE) 1 /0.01ml (100units/ml) SC SCH (10:00)
[2020-08-29] MEDS: BUDESONIDE (INHALATION) 180 MCG IH IN SCH ×2 (10:16→22:49)
[2020-08-29] MEDS: ALBUTEROL SULF HFA 90MCG INH 200DOSE IN PRN ×2 (10:16→22:49)
[2020-08-29] MEDS: HYDROcodone-ACET 5/325MG TAB PO PRN ×3 (12:25→20:40)
[2020-08-29 16:00] VITALS: BP 165/76
[2020-08-29] MEDS: ONDANSETRON HCL 4 MG/2 ML VIAL IV PRN (23:13)
[2020-08-29] MEDS: TEMAZEPAM 15 MG CAP PO PRN (23:14)
[2020-08-30] VITALS: BP 152/73
[2020-08-30] MEDS: HYDROcodone-ACET 5/325MG TAB PO PRN ×6 (01:00→23:23)
[2020-08-30 06:07] LABS: Basophils # (auto) 0.1 10 ^3/uL (0-0.2); Basophils % (auto) 1.6 % (0.0-2.0); Eosinophils # (auto) 0.1 10 ^3/uL (0-0.8); Eosinophils % (auto) 0.9 % (0.0-7.0); Hematocrit 44.7 % (41.0-53.0); Hemoglobin 15.2 g/dL (13.5-17.5); Lymphocytes # (auto) 1.4 10 ^3/uL (0.4-5.4); Lymphocytes % (auto) 23.6 % (10.0-50.0); Mean Corpuscular Hemoglobin 30.3 pg (28.0-32.0); Mean Corpuscular Volume 89.1 fL (80.0-100.0); Monocytes # (auto) 0.5 10 ^3/uL (0-1.3); Monocytes % (auto) 9.3 % (0.0-12.0); Neutrophils # (auto) 3.7 10 ^3/uL (1.6-8.6); Neutrophils % (auto) 64.6 % (37.0-80.0); Nucleated Red Blood Cells % 0.2 %; Platelet Count (auto) 195 10^3/uL (140-450); Red Blood Cells 5.02 10^6/uL (4.5-5.90); Red Cell Distribution Width 14.8 % (11.8-14.3); White Blood Cell 5.7 10^3/uL (4.4-10.8)
[2020-08-30 06:36] LABS: Potassium 4.1 mmol/L (3.5-5.1)
[2020-08-30] MEDS: ACCU-CHEK COMFORT CURVE STRIP VI SCH ×4 (06:39→22:34)
[2020-08-30] MEDS: metroNIDAZOLE 500MG/100ML 100 ML IV SCH ×3 (06:39→22:33)
[2020-08-30 06:40] LABS: Calcium 8.2 mg/dL (8.5-10.1); Magnesium 2.1 mg/dL (1.6-2.6)
[2020-08-30] MEDS: InsuLIN REG 1unit/0.01ml Soln (100units/ml) SC SCH ×4 (06:40→22:00)
[2020-08-30 08:00] VITALS: BP 147/77
[2020-08-30] MEDS: CIPROFLOXACIN 400MG/200ML 200 ML IV SCH ×2 (08:38→20:38)
[2020-08-30] MEDS: AMIODARONE HCL 200 MG TAB PO SCH ×2 (08:40→22:00)
[2020-08-30] MEDS: BUDESONIDE (INHALATION) 180 MCG IH IN SCH ×2 (08:41→19:09)
[2020-08-30] MEDS: METOPROLOL TARTRATE 50 MG TAB PO SCH ×2 (08:41→22:34)
[2020-08-30] MEDS: ONDANSETRON HCL 4 MG/2 ML VIAL IV PRN (12:31)
[2020-08-30] MEDS: INSULIN LANTUS (GLARGINE) 1 /0.01ml (100units/ml) SC SCH (12:41)
[2020-08-30] MEDS: ALPRAZolam 0.25 MG TAB PO PRN ×2 (14:43→22:30)
[2020-08-30 16:00] VITALS: BP 143/67
[2020-08-30] MEDS: ALBUTEROL SULF HFA 90MCG INH 200DOSE IN PRN (19:09)
[2020-08-30 19:35] LABS: Urine Bacteria FEW /hpf (None Seen); Urine Blood Negative /uL (Negative); Urine Specific Gravity 1.005 (1.001-1.035); Urine WBC 1 /hpf (0 - 3)
[2020-08-31] VITALS: BP 138/71
[2020-08-31] MEDS: TEMAZEPAM 15 MG CAP PO PRN (00:14)
[2020-08-31] MEDS: HYDROcodone-ACET 5/325MG TAB PO PRN ×2 (03:48→09:19)
[2020-08-31] MEDS: ACCU-CHEK COMFORT CURVE STRIP VI SCH ×2 (05:36→11:55)
[2020-08-31] MEDS: metroNIDAZOLE 500MG/100ML 100 ML IV SCH ×2 (05:36→14:00)
[2020-08-31] MEDS: InsuLIN REG 1unit/0.01ml Soln (100units/ml) SC SCH ×2 (05:36→11:55)
[2020-08-31] MEDS: ALPRAZolam 0.25 MG TAB PO PRN (06:35)
[2020-08-31] MEDS: BUDESONIDE (INHALATION) 180 MCG IH IN SCH (07:23)
[2020-08-31] MEDS: ALBUTEROL SULF HFA 90MCG INH 200DOSE IN PRN (07:24)
[2020-08-31 08:00] VITALS: BP 148/65
[2020-08-31] MEDS: CIPROFLOXACIN 400MG/200ML 200 ML IV SCH (08:00)
[2020-08-31] MEDS: AMIODARONE HCL 200 MG TAB PO SCH (09:06)
[2020-08-31] MEDS: METOPROLOL TARTRATE 50 MG TAB PO SCH (09:06)
[2020-08-31] MEDS: INSULIN LANTUS (GLARGINE) 1 /0.01ml (100units/ml) SC SCH (09:20)
[2020-08-31 12:33] VITALS: BP 148/65
== END 2020-08-31 14:20 | disposition home health service (06) | DRG 871 ==
LOC: EDBD 09:45 → ER 09:45 → TELE 09:46 → TELE-WESTW 08-19 18:30
PROVIDERS: ADMIT Nurse Practitioner Acute Care; ATTEND Internal Medicine Geriatric Medicine
PROC: XW033E5 Introduction of Remdesivir Anti-infective into Peripheral Vein, Percutaneous Approach, New Technology Group 5 (ICD-10-PCS; principal; 2020-08-18)
DX: A41.89 Other specified sepsis (principal); U07.1 COVID-19; J12.82 Pneumonia due to coronavirus disease 2019; J96.01 Acute respiratory failure with hypoxia; N17.0 Acute kidney failure with tubular necrosis; E11.10 Type 2 diabetes mellitus with ketoacidosis without coma; G45.9 Transient cerebral ischemic attack, unspecified; J44.0 Chronic obstructive pulmonary disease with (acute) lower respiratory infection; K80.60 Calculus of gallbladder and bile duct with cholecystitis, unspecified, without obstruction; I25.10 Atherosclerotic heart disease of native coronary artery without angina pectoris; K52.9 Noninfective gastroenteritis and colitis, unspecified; K59.00 Constipation, unspecified; E86.0 Dehydration; E88.09 Other disorders of plasma-protein metabolism, not elsewhere classified; I10 Essential (primary) hypertension; E78.5 Hyperlipidemia, unspecified; F41.9 Anxiety disorder, unspecified; I48.91 Unspecified atrial fibrillation; Z88.7 Allergy status to serum and vaccine; Z79.01 Long term (current) use of anticoagulants; Z79.4 Long term (current) use of insulin; Z79.899 Other long term (current) drug therapy; Z85.820 Personal history of malignant melanoma of skin; Z86.73 Personal history of transient ischemic attack (TIA), and cerebral infarction without residual deficits; Z95.5 Presence of coronary angioplasty implant and graft
CPT/HCPCS: 36415; 36600; 51702; 71045; 74022; 74176; 74177; 80048; 80053; 81001; 82270; 82306; 82728; 82805; 82962; 83036; 83605; 83615; 83735; 83880; 83930; 84100; 84443; 84484; 85025; 85379; 85610; 85730; 86141; 87040; 87045; 87426; 87427; 87493; 87804; 93005; 93306; 94640; 96365; 96367; 96375; 97530; 99291; G0378; J0696; J1815; J2405; J2543; J3490; J7060